=== PATIENT | male | born 1970 | race Caucasian/White ===

== ENCOUNTER 2017-06-24 07:52 | Day surgery (SDC) | payer OTHER ==
[2017-06-24 08:58] LABS: ADD MAN DIFF? NO
[2017-06-24 09:01] LABS: BASOPHILS % 0.5 % (0.0-2.0); EOSINOPHILS # 0.1 10^3/ul (0.0-0.5); EOSINOPHILS % 1.1 % (0.0-7.0); HEMATOCRIT 48.1 % (42.0-52.0); HEMOGLOBIN 16.7 g/dl (14.0-18.0); LYMPHOCYTES # 2.7 10^3/ul (0.8-2.9); LYMPHOCYTES % 41.4 % (15.0-51.0); MEAN CORPUSCULAR HEMOGLOBIN 29.3 pg (29.0-33.0); MEAN CORPUSCULAR HGB CONC 34.7 g/dl (32.0-37.0); MEAN CORPUSCULAR VOLUME 84.5 fl (82.0-101.0); MEAN PLATELET VOLUME 8.8 fl (7.4-10.4); MONOCYTE # 0.6 10^3/ul (0.3-0.9); MONOCYTES % 8.6 % (0.0-11.0); NEUTROPHILS % 47.3 % (39.0-77.0); PLATELET COUNT 240 10^3/UL (140-415); RED BLOOD COUNT 5.69 10^6/ul (4.70-6.10); RED CELL DISTRIBUTION WIDTH 12.5 % (11.5-14.5)
[2017-06-24 09:01] LABS: WHITE BLOOD COUNT 6.4 10^3/ul (4.8-10.8)
[2017-06-24 09:19] LABS: ANION GAP 18 (8-16); CARBON DIOXIDE 21 mmol/L (21-31); CHLORIDE 110 mmol/L (97-110); GLUCOSE 112 mg/dl (70-220)
[2017-06-24 09:21] LABS: BLOOD UREA NITROGEN 16 mg/dl (7-20); CALCIUM 9.2 mg/dl (8.4-10.2); CREATININE 0.79 mg/dl (0.61-1.24); POTASSIUM 4.4 mmol/L (3.5-5.1)
[2017-06-24 09:23] LABS: INR 0.87; PROTIME 11.9 Sec (11.9-14.9); PT RATIO 0.9; SODIUM 145 mmol/L (135-144)
[2017-06-24 09:24] LABS: PARTIAL THROMBOPLASTIN TIME 29.4 Sec (25.0-35.0)
[2017-06-24] MEDS ORDERED: HEPARIN 1000 UNITS/ML 10 ML INJ (09:25)
[2017-06-24] MEDS ORDERED: VERAPAMIL 5 MG INJ (09:25)
[2017-06-24] MEDS ORDERED: LIDOCAINE 1% (MDV) 20 ML INJ (09:25)
[2017-06-24] MEDS ORDERED: IODIXANOL LOCM 100 ML BTL (09:25)
[2017-06-24] MEDS ORDERED: MIDAZOLAM 1 MG/ML 2 ML INJ (09:25)
[2017-06-24] MEDS ORDERED: FENTAnyl 50 MCG/ML VIAL (09:25)
[2017-06-24] MEDS ORDERED: NITROGLYCERIN (IC) 100 MCG/ML INJ (10:08)
[2017-06-24] MEDS ORDERED: ONDANSETRON 4 MG INJ IV (11:00)
[2017-06-24] MEDS ORDERED: AL HYDROX/MG HYDROX/SIMETH 30 ML CUP PO (11:00)
[2017-06-24] MEDS ORDERED: HOLD all METFORMIN and METFORMIN CONTAINING medications for 48 hours post procedure. Chec XX (11:00)
[2017-06-24] MEDS ORDERED: ACETAMINOPHEN 325 MG TAB PO (11:00)
[2017-06-24] MEDS: hydrALAzine 20 MG INJ IV (11:35)
[2017-06-24] MEDS: SOD CHLORIDE 0.9% 1,000 ML IV (11:36)
== END 2017-06-27 10:08 | disposition home or self-care (01) ==
LOC: SDS 06-27 10:08
DX: I25.10 Atherosclerotic heart disease of native coronary artery without angina pectoris (principal)
CPT/HCPCS: 80048; 85025; 85610; 85730; 93005; 93458